=== PATIENT | female | born 2005 | race Hispanic/Latino ===

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

== ENCOUNTER 2023-02-14 21:55 | Emergency (ER) | payer BC ==
--- OUTSIDE RECORDS SUMMARY | 2023-02-14 21:58 | XMS REPORT | Continuity of Care Document ---
:2005 Author Organization [facility] t Address [address] [place] [address] [place] [id number] Care Team Providers Name Role Phone PCP, PATIENT DOES NOT HAVE A Primary Care Physician Unavaila ble [email or web address] Attending Clinician Unavailable RENO PÉREZ Attending Clinician Unavailable Nurse, Carlitos Obrien Attending Clinician Unavailable Unknown, Attending Attending Clinician Unavailable Doctor Unassigned, [place] Attending Clinician Unavailable [email or web address] Admitting Clinician Unavailable Payers Payer Name Policy Type Policy Number Effective Date Expiration Date S alyse [facility]: BS [id number] 2016 00:00:00 OF [place] (PPO) Problems This patient has no known problems. Allergies, Adverse Reactions, Alerts Allergy Allergy Status Severity Reaction(s) Onset Inactive Treating Comm ents Source Name Type Date Date Clinician NO KNOWN Drug Active Univers ALLERGIE Class ity of S [facility] Social History Social Habit Start Date Stop Date Quantity Comments Source Exposure to 2021-12-23 2022-01-[address] [facility] SARS-CoV-2 (event) 00:00:00 12:53:00 Medica l Branch Sex [facility]igned At [birth year] [facility] [place] [facility] 00:00:00 Medical Branch Smoking Status Start Date Stop Date Source Tobacco [facility] Medications Ordered Filled Start Stop Current Ordering Indication Dosage Frequency Signature Comments Components Source Medication Medication Date Date Medication? Clinician (SIG) Name Name atenoloL 50 2021-0 Yes Univer s mg tablet 12-30 ity of 00:00: [place] 00 Medical Branch amphetamine Yes 1 capsule U nivers -dextroamph 8-16 in the [place]y of [place]amine 20 [place] 24 [place] 00 Medical capsule Branch Procedures Procedure Date / Time Performed Performing Clinician Marci COTE (MCV4-C) 2022-01-02 18:20:06 [place] Pérez [place] f [place] VACCINE [facility] CONSENT/REFUSAL FOR 2022-01-02 17:53:03 Doctor Unassigned, No Un [facility] DIAGNOSIS AND Name Medical Branch TREATMENT Encounters Start End Encounter Admission Attending Care Care Encounter Source Date/Time Date/Time Type Type Clinicians Facility Department ID 2022-12-28 2022-12-28 Outpatient [email or web address]_Ka PRIV PRIV [id number] [facility] 00:00:00 00:00:00 diyala_S [id number] Medic al 2022-12-08 2022-12-08 Outpatient [email or web address] PRIV PRIV [id number] [facility] 00:00:00 00:00:00 diyala_S [id number] Medic de 2022-01-02 2022-01-02 Outpatient Theo PÉREZ, [facility] [id number] Univers 13:00:00 13:27:23 RENO [facility] 2022-01-02 2022-01-02 Nurse Nurse, Carlitos Obrien [facility] [id number] Univers 13:00:00 13:20:00 Visit Unknown, Attending HEALTH [id number] ity of [place] [id number] Bj as ERIKA?BLEA [phone] Ak lianna ISAAC 044 Branch MEDICAL OFFICE BUILDING 2022-01-02 2022-01-02 Orders Doctor COLT [id number] Univers 00:00:00 00:00:00 Only Unassigned, DELIA [id number] ity of [place] [facility] [id number] Bj as [phone] [facility] 009 Branch Results This patient has no known results.
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
[2023-02-15] MEDS ORDERED: AZITHROMYCIN 250 MG TAB ONE (02:47)
[2023-02-15] MEDS ORDERED: metroNIDAZOLE 500 MG TABLET ONE (02:47)
[2023-02-15] MEDS ORDERED: LIDOCAINE 1% MPF 2 ML AMPULE ONE (02:47)
[2023-02-15] MEDS ORDERED: CEFTRIAXONE 500 MG/VIAL ONE (02:47)
[2023-02-15] MEDS ORDERED: ONDANSETRON 4 MG (ODT) TAB ONE (02:48)
[2023-02-15 03:30] VITALS: TEMP 98.9; O2SAT 100
[2023-02-15 03:32] VITALS: BP 119/74
== END 2023-02-15 03:24 | disposition home or self-care (01) ==
LOC: ER 21:55
DX: Z04.41 Encounter for examination and observation following alleged adult rape (principal)
CPT/HCPCS: 96372; 99284; Q0162